=== PATIENT | male | born 1950 ===

== ENCOUNTER 2023-05-21 16:23 | Inpatient (IN) | payer MEDICARE ==
[~2023-05-21] VITALS: Ht 172.7 cm; Wt 70.8 kg
[2023-05-21] MEDS ORDERED: OLAN7.5T3 PO (17:02)
[2023-05-21] MEDS ORDERED: TRAZ-182 PO (17:02)
[2023-05-21] MEDS ORDERED: MIRT-93 PO (17:02)
[2023-05-21] MEDS ORDERED: ACETAMINOPHEN 325 MG TABLET PO PRN (18:15)
[2023-05-21] MEDS ORDERED: MAG HYDROX/AL HYDROX/SIMETH 30 ML LIQUID UDC PO PRN (18:15)
[2023-05-21] MEDS ORDERED: MAGNESIUM HYDROXIDE 30 ML LIQUID UDC PO PRN (18:15)
[2023-05-21] MEDS ORDERED: TEMAZEPAM 7.5 MG CAPSULE PO PRN (18:15)
[2023-05-21] MEDS ORDERED: CLONAZEPAM 0.5 MG TABLET PO PRN (18:15)
[2023-05-21] MEDS ORDERED: BLOOD SUGAR DIAGNOSTIC 1 EACH STRIP VI ONE (18:15)
[2023-05-21 18:30] VITALS: BP 143/68; TEMP 98; O2SAT 99
[2023-05-22 07:45] LABS: BASOPHILS % (AUTO) 0.4 % (0.0-2.0); EOSINOPHILS # (AUTO) 0.2 K/uL (0.0-0.7); EOSINOPHILS % (AUTO) 3.7 % (0.0-7.0); HEMATOCRIT 44.8 % (36.7-47.1); HEMOGLOBIN 15.1 g/dL (12.5-16.3); LYMPHOCYTES # (AUTO) 1.1 K/uL (0.8-4.8); LYMPHOCYTES % (AUTO) 17.5 % (20.5-51.5); MEAN CORPUSCULAR HEMOGLOBIN 30.6 uug (23.8-33.4); MEAN CORPUSCULAR HGB CONC 34 g/dL (32.5-36.3); MEAN CORPUSCULAR VOLUME 90.8 fL (73.0-96.2); MONOCYTES # (AUTO) 0.6 K/uL (0.1-1.30); MONOCYTES % (AUTO) 9.9 % (0.0-11.0); NEUTROPHILS # (AUTO) 4.4 K/uL (1.8-8.9); NEUTROPHILS % (AUTO) 68.5 % (38.5-71.5); PLATELET COUNT (AUTO) 266 K/uL (152-348); RED BLOOD CELL COUNT(AUTO) 4.93 MIL/uL (4.06-5.63); RED CELL DISTRIBUTION WIDTH 13.5 % (12.1-16.2); WHITE BLOOD COUNT (AUTO) 6.4 K/uL (3.6-10.2)
[2023-05-22 07:50] LABS: DIFFERENTIAL COMMENT 1
[2023-05-22 08:04] VITALS: BP 149/74; TEMP 98.4; O2SAT 98
[2023-05-22 08:12] LABS: ALANINE AMINOTRANSFERASE 26 U/L (16-63); ALBUMIN 3.7 g/dL (3.4-5.0); ALKALINE PHOSPHATASE 111 U/L (50-136); ASPARTATE AMINOTRANSFERASE 15 U/L (15-37); BILIRUBIN,TOTAL 0.5 mg/dL (0.2-1.0); CALCIUM 8.8 mg/dL (8.5-10.1); CARBON DIOXIDE 32 mmol/L (21-32); CHLORIDE 102 mmol/L (98-107); CREATININE 0.8 mg/dL (0.6-1.3); GLUCOSE 98 mg/dL (74-106); POTASSIUM 4.2 mmol/L (3.5-5.1); SODIUM SERUM 141 mmol/L (136-145); TOTAL PROTEIN, SERUM 7.8 g/dL (6.4-8.2); UREA NITROGEN, BLOOD 12 mg/dL (7-18)
[2023-05-22 15:30] VITALS: BP 166/73; TEMP 98.2; O2SAT 98
[2023-05-22] MEDS: OLANZAPINE 2.5 MG TABLET PO SCH (17:31)
[2023-05-22] MEDS ORDERED: HYDR-894 PO (18:32)
[2023-05-22] MEDS ORDERED: TRAZ-182 PO (18:32)
[2023-05-22] MEDS ORDERED: DOCU100C36 PO (18:32)
[2023-05-22] MEDS ORDERED: ATOR40TA PO (18:32)
[2023-05-22 19:52] VITALS: BP 132/75; TEMP 98; O2SAT 99
[2023-05-22] MEDS ORDERED: hydrALAZINE HCL 25 MG TABLET PO PRN (20:00)
[2023-05-22] MEDS ORDERED: DOCUSATE SODIUM 100 MG CAPSULE PO PRN (20:00)
[2023-05-22] MEDS: VALSARTAN 80 MG TABLET PO SCH (20:41)
[2023-05-22] MEDS: MIRTAZAPINE 15 MG TABLET PO SCH (20:41)
[2023-05-23 08:00] VITALS: BP 119/57; TEMP 98.1; O2SAT 98
[2023-05-23] MEDS: OLANZAPINE 2.5 MG TABLET PO SCH ×2 (08:56→16:59)
[2023-05-23] MEDS: VALSARTAN 80 MG TABLET PO SCH (08:56)
[2023-05-23 16:01] VITALS: BP 141/73; TEMP 98.2; O2SAT 98
[2023-05-23 20:00] VITALS: BP 118/58; TEMP 98; O2SAT 98
[2023-05-23] MEDS: MIRTAZAPINE 15 MG TABLET PO SCH ×2 (20:53→21:39)
[2023-05-24 07:51] VITALS: BP 147/72; TEMP 98.2; O2SAT 97
[2023-05-24] MEDS: OLANZAPINE 2.5 MG TABLET PO SCH ×2 (08:19→20:16)
[2023-05-24] MEDS: VALSARTAN 80 MG TABLET PO SCH (08:20)
[2023-05-24 16:16] VITALS: BP 118/60; TEMP 98.1; O2SAT 99
[2023-05-24] MEDS: MIRTAZAPINE 15 MG TABLET PO SCH (20:16)
[2023-05-24 20:31] VITALS: BP 128/66; TEMP 98.2; O2SAT 98
[2023-05-25 08:03] VITALS: BP 113/68; TEMP 98.2; O2SAT 99
[2023-05-25] MEDS: VALSARTAN 80 MG TABLET PO SCH (08:21)
[2023-05-25 12:19] LABS: BASOPHILS # (AUTO) 0.1 K/UL (0.0-0.2); BASOPHILS % (AUTO) 0.8 % (0.0-2.0); EOSINOPHILS # (AUTO) 0.1 K/uL (0.0-0.7); EOSINOPHILS % (AUTO) 1.4 % (0.0-7.0); HEMATOCRIT 44.9 % (36.7-47.1); HEMOGLOBIN 15.3 g/dL (12.5-16.3); LYMPHOCYTES # (AUTO) 1.3 K/uL (0.8-4.8); LYMPHOCYTES % (AUTO) 14.1 % (20.5-51.5); MEAN CORPUSCULAR HEMOGLOBIN 30.6 uug (23.8-33.4); MEAN CORPUSCULAR HGB CONC 34 g/dL (32.5-36.3); MONOCYTES # (AUTO) 0.8 K/uL (0.1-1.30); MONOCYTES % (AUTO) 8.6 % (0.0-11.0); NEUTROPHILS # (AUTO) 7.1 K/uL (1.8-8.9); NEUTROPHILS % (AUTO) 75.1 % (38.5-71.5); PLATELET COUNT (AUTO) 279 K/uL (152-348); RED BLOOD CELL COUNT(AUTO) 4.99 MIL/uL (4.06-5.63); RED CELL DISTRIBUTION WIDTH 13.2 % (12.1-16.2); WHITE BLOOD COUNT (AUTO) 9.4 K/uL (3.6-10.2)
[2023-05-25 12:29] LABS: DIFFERENTIAL COMMENT 1
[2023-05-25 12:49] LABS: ALBUMIN 3.5 g/dL (3.4-5.0); BILIRUBIN,TOTAL 0.3 mg/dL (0.2-1.0); CALCIUM 8.7 mg/dL (8.5-10.1); CREATININE 0.9 mg/dL (0.6-1.3); POTASSIUM 4.6 mmol/L (3.5-5.1); TOTAL PROTEIN, SERUM 7.7 g/dL (6.4-8.2)
[2023-05-25 16:33] VITALS: BP 104/54; TEMP 98; O2SAT 100
[2023-05-25 20:34] VITALS: BP 101/57; TEMP 98; O2SAT 98
[2023-05-25] MEDS: OLANZAPINE 2.5 MG TABLET PO SCH (20:41)
[2023-05-25] MEDS: MIRTAZAPINE 15 MG TABLET PO SCH (20:41)
[2023-05-26 07:55] VITALS: BP 158/83; TEMP 98.1; O2SAT 99
[2023-05-26] MEDS: VALSARTAN 80 MG TABLET PO SCH (08:21)
[2023-05-26 16:26] VITALS: BP 107/64; TEMP 98; O2SAT 100
[2023-05-26 20:00] VITALS: BP 120/69; TEMP 97.4; O2SAT 97
[2023-05-26] MEDS: MIRTAZAPINE 15 MG TABLET PO SCH (21:11)
[2023-05-26] MEDS: OLANZAPINE 2.5 MG TABLET PO SCH (21:11)
[2023-05-27 07:49] VITALS: BP 123/63; TEMP 98.2; O2SAT 99
[2023-05-27] MEDS: VALSARTAN 80 MG TABLET PO SCH (08:42)
[2023-05-27 15:10] VITALS: BP 100/61; TEMP 98; O2SAT 99
[2023-05-27 20:14] VITALS: BP 134/76; TEMP 98.1; O2SAT 98
[2023-05-27] MEDS: OLANZAPINE 2.5 MG TABLET PO SCH (21:28)
[2023-05-27] MEDS: MIRTAZAPINE 15 MG TABLET PO SCH (21:28)
[2023-05-28 08:07] VITALS: BP 112/65; TEMP 98; O2SAT 99
[2023-05-28 09:47] VITALS: BP 112/65
[2023-05-28] MEDS: VALSARTAN 80 MG TABLET PO SCH (09:47)
[2023-05-28] MEDS ORDERED: VALS80TA31 PO (14:15)
[2023-05-28] MEDS ORDERED: DOCU100C36 PO (14:15)
[2023-05-28] MEDS ORDERED: TRAZ-182 PO (14:15)
[2023-05-28] MEDS ORDERED: ATOR40TA PO (14:15)
[2023-05-28] MEDS ORDERED: HYDR-894 PO (14:15)
== END 2023-05-28 12:00 | disposition home or self-care (01) | DRG 885 ==
LOC: ER 16:31 → GPS 17:27
PROVIDERS: ADMIT Psychiatry & Neurology Psychiatry; ATTEND Internal Medicine
DX: F33.2 Major depressive disorder, recurrent severe without psychotic features (principal); F01.53 Vascular dementia, unspecified severity, with mood disturbance; F01.52 Vascular dementia, unspecified severity, with psychotic disturbance; Z86.73 Personal history of transient ischemic attack (TIA), and cerebral infarction without residual deficits; E53.8 Deficiency of other specified B group vitamins; I11.9 Hypertensive heart disease without heart failure; Z87.891 Personal history of nicotine dependence; F29 Unspecified psychosis not due to a substance or known physiological condition; F19.10 Other psychoactive substance abuse, uncomplicated
CPT/HCPCS: 36415; 85025; 93005